=== PATIENT | male | born 2000 | race Caucasian/White ===

== ENCOUNTER → 2021-04-14 | Outpatient (CLI) | payer BC ==
--- NOTE | 2021-04-14 12:44 | Diagnostic Imaging Report ---
INDICATION: Right knee pain, swelling, trauma COMPARISON: None FINDINGS: 3 views of the right knee joint demonstrate no acute fracture or dislocation. No focal osseous lesions are seen. A small joint effusion is seen. The surrounding soft tissue structures are unremarkable. There are no radiopaque foreign bodies. IMPRESSION: No acute fracture in the right knee joint. Small joint effusion. Dictated by: Dictated on workstation # [id number]
== END ==
LOC: RAD FS 10:49
PROVIDERS: ATTEND Nurse Practitioner
DX: S89.91XA Unspecified injury of right lower leg, initial encounter (principal); M25.461 Effusion, right knee; X58.XXXA Exposure to other specified factors, initial encounter
CPT/HCPCS: 73562

== ENCOUNTER → 2021-04-22 | Outpatient (CLI) | payer BC ==
--- NOTE | 2021-04-22 10:24 | Diagnostic Imaging Report ---
INDICATION: Lateral subluxation of the patella. TECHNIQUE: Single sunrise view of the right knee. CORRELATION STUDY: None. FINDINGS: Patellofemoral alignment appears to be anatomic and unremarkable. No significant spurring or osteophyte formation. Soft tissues are unremarkable. IMPRESSION: 1. Unremarkable appearing single sunrise view of the right knee. Dictated by: Dictated on workstation # [id number]
== END ==
LOC: RAD FS 09:59
PROVIDERS: ATTEND Nurse Practitioner
DX: S83.011A Lateral subluxation of right patella, initial encounter (principal); X58.XXXA Exposure to other specified factors, initial encounter
CPT/HCPCS: 73560

== ENCOUNTER → 2022-05-19 | Outpatient (CLI) | payer OTHER, BC ==
--- NOTE | 2022-05-19 15:43 | Diagnostic Imaging Report ---
PROCEDURE: MRI lumbar spine. TECHNIQUE: Multiplanar, multisequence MRI of the lumbar spine was performed without contrast. INDICATION: Low back pain, history of lifting injury. EXAMINATION: Lumbar spine MRI without contrast 05/19/2022. FINDINGS: There is normal height and alignment of the vertebral bodies. No fractures or subluxations appreciated. Tip of the conus unremarkable in appearance and location. L1-L2: There is mild broad-based bulging disc material with bilateral facet and ligamentum flavum hypertrophy. There is no central stenosis. Neural foramina patent. L2-L3: There is bilateral facet and ligament flavum hypertrophy. There is minimal broad-based bulging disc material which flattens the ventral thecal sac. No central stenosis. There is mild bilateral neural foraminal narrowing. L3-L4: There is intervertebral disc space narrowing, disc desiccation with a central disc protrusion. There is bilateral facet hypertrophy. There is mild to moderate central stenosis with mild narrowing of the lateral recesses, left greater than right. There is moderate bilateral neural foraminal stenosis. L4-L5: There is intervertebral space narrowing, disc desiccation with a right paracentral disc extrusion. This contains an annular tear. There is bilateral facet and ligamentum flavum hypertrophy. Findings cause moderate to almost severe central stenosis with narrowing of the lateral recesses, right worse than left. There is moderate bilateral neural foraminal stenosis. L5-S1: There is disc desiccation with a central disc protrusion. There is bilateral facet hypertrophy. There is moderate central stenosis with narrowing of the lateral recesses, right greater than left. There is moderate bilateral neural foraminal stenosis left greater than right. Visualized intra-abdominal structures unremarkable. IMPRESSION: 1. Multilevel general findings as detailed above with worst findings seen at L4-L5 where there is a right paracentral disc extrusion causing moderate to severe central stenosis and narrowing of the lateral recesses sees right greater than left. Additionally a central disc protrusion at L5-S1 causes moderate central narrowing with narrowing of the lateral recesses right worse than left. Other findings as above Dictated by: Dictated on workstation # [id number]
== END ==
LOC: RAD 14:15
PROVIDERS: ATTEND Nurse Practitioner
DX: M47.26 Other spondylosis with radiculopathy, lumbar region (principal); M47.817 Spondylosis without myelopathy or radiculopathy, lumbosacral region; M51.16 Intervertebral disc disorders with radiculopathy, lumbar region; M51.27 Other intervertebral disc displacement, lumbosacral region; M51.37 Other intervertebral disc degeneration, lumbosacral region; M48.061 Spinal stenosis, lumbar region without neurogenic claudication; M48.07 Spinal stenosis, lumbosacral region; M24.28 Disorder of ligament, vertebrae
CPT/HCPCS: 72148